=== PATIENT | male | born 1960 | race Caucasian/White ===

== ENCOUNTER 2016-06-20 07:57 | Outpatient (CLI) | payer OTHER | END 2016-06-20 07:58 | disposition home or self-care (01) | DX: I10 Essential (primary) hypertension (principal); E78.5 Hyperlipidemia, unspecified; Z12.5 Encounter for screening for malignant neoplasm of prostate ==

== ENCOUNTER 2016-09-21 08:13 | Outpatient (CLI) | payer OTHER | END 2016-09-21 08:14 | disposition home or self-care (01) | DX: E78.5 Hyperlipidemia, unspecified (principal) ==

== ENCOUNTER 2017-07-26 07:46 | Outpatient (CLI) | payer OTHER ==
[2017-07-26 08:20] LABS: ALBUMIN 4.4 g/dL (3.2-5.5); ALBUMIN/GLOBULIN RATIO 1.5 (1.0-2.2); ALKALINE PHOSPHATASE 72 IU/L (42-121); ALT ALANINE AMINOTRANSFERASE 40 IU/L (10-60); AST ASPARTATE AMINOTRANSFERASE 31 IU/L (10-42); BUN - BLOOD UREA NITROGEN 16 mg/dL (6-20); CARBON DIOXIDE - CO2 23 mmol/L (21-32); CHLORIDE 105 mmol/L (101-111); CHOL/HDL RATIO 3.9 (<5.0); CHOLESTEROL 151 mg/dL; CREATININE 1.2 mg/dL (0.6-1.2); GFR - MDRD 63 (>89); GLUCOSE 101 mg/dL (70-100); HDL CHOLESTEROL 39 mg/dL; LDL CHOLESTEROL,CALCULATED 89 mg/dL; LDL/HDL RATIO 2.3 (<3.6); SODIUM 135 mmol/L (135-145); TOTAL PROTEIN 7.3 g/dL (6.7-8.2); VLDL CHOLESTEROL 23 mg/dL
== END 2017-07-26 07:47 | disposition home or self-care (01) ==
LOC: LAB 07:46
PROVIDERS: ATTEND Family Medicine
DX: N52.9 Male erectile dysfunction, unspecified (principal); E78.5 Hyperlipidemia, unspecified; I10 Essential (primary) hypertension
CPT/HCPCS: 36415; 80053; 80061; 83721

== ENCOUNTER 2018-04-18 08:18 | Outpatient (CLI) | payer OTHER | END 2018-04-18 08:19 | disposition home or self-care (01) | LOC: RT 08:18 | PROVIDERS: ATTEND Internal Medicine Gastroenterology | DX: I10 Essential (primary) hypertension (principal); E78.5 Hyperlipidemia, unspecified | CPT/HCPCS: 93005 ==

== ENCOUNTER 2018-04-24 10:50 | Day surgery (SDC) | payer OTHER ==
[2018-04-24] MEDS ORDERED: LACTATED RINGERS 1,000 ML IV ONE (11:17)
[2018-04-24] MEDS ORDERED: fentaNYL 250 MCG/5 ML VIAL IVP ONE (12:27)
[2018-04-24] MEDS ORDERED: MIDAZOLAM 2 MG/2 ML VIAL IVP ONE (12:27)
[2018-04-24 13:46] VITALS: BP 124/87
== END 2018-04-24 10:51 | disposition home or self-care (01) ==
LOC: SDS 10:50
PROVIDERS: ATTEND Internal Medicine Gastroenterology
PROC: 0DBL8ZZ Excision of Transverse Colon, Via Natural or Artificial Opening Endoscopic (ICD-10-PCS; 2018-04-24)
PROC: 0DBM8ZZ Excision of Descending Colon, Via Natural or Artificial Opening Endoscopic (ICD-10-PCS; 2018-04-24)
PROC: 0DBK8ZZ Excision of Ascending Colon, Via Natural or Artificial Opening Endoscopic (ICD-10-PCS; principal; 2018-04-24 12:00)
DX: Z12.11 Encounter for screening for malignant neoplasm of colon (principal); D12.2 Benign neoplasm of ascending colon; D12.4 Benign neoplasm of descending colon; D12.3 Benign neoplasm of transverse colon; K57.30 Diverticulosis of large intestine without perforation or abscess without bleeding; I10 Essential (primary) hypertension; E78.5 Hyperlipidemia, unspecified; E66.9 Obesity, unspecified; Z68.32 Body mass index [BMI] 32.0-32.9, adult
CPT/HCPCS: 45380; J3010; J7120

== ENCOUNTER 2018-09-26 08:13 | Outpatient (CLI) | payer BC ==
[2018-09-26 08:50] LABS: BASOPHILS # (AUTO) 0.1 10^3/uL (0.0-0.1); BASOPHILS % (AUTO) 0.9 %; EOSINOPHILS # (AUTO) 0.2 10^3/uL (0.0-0.7); HGB - HEMOGLOBIN 14.1 g/dL (14.0-18.0); LYMPHOCYTES % (AUTO) 32.5 %; MEAN CORPUSCULAR HEMOGLOBIN 30.4 pg (27.0-31.0); MEAN CORPUSCULAR HGB CONC 33.9 g/dL (32.0-36.0); MEAN CORPUSCULAR VOLUME 89.6 fL (80.0-94.0); MEAN PLATELET VOLUME 7.4 fL (7.4-11.4); MONOCYTES # (AUTO) 0.5 10^3/uL (0.0-1.0); NEUTROPHILS # (AUTO) 3.3 10^3/uL (1.5-6.6); NEUTROPHILS % (AUTO) 53.6 %; PLT - PLATELET COUNT 207 10^3/uL (130-450); RED BLOOD COUNT 4.65 10^6/uL (4.70-6.10); RED CELL DISTRIBUTION WIDTH 13.2 % (12.0-15.0); WHITE BLOOD COUNT 6.1 x10^3/uL (4.8-10.8)
[2018-09-26 09:18] LABS: ALBUMIN 4.1 g/dL (3.2-5.5); ALBUMIN/GLOBULIN RATIO 1.5 (1.0-2.2); ALKALINE PHOSPHATASE 71 IU/L (42-121); ALT ALANINE AMINOTRANSFERASE 35 IU/L (10-60); AST ASPARTATE AMINOTRANSFERASE 24 IU/L (10-42); BILIRUBIN,TOTAL 1.4 mg/dL (0.2-1.0); BUN - BLOOD UREA NITROGEN 13 mg/dL (6-20); CHOL/HDL RATIO 3.5 (<5.0); CHOLESTEROL 140 mg/dL; CREATININE 1.3 mg/dL (0.6-1.2); GFR - MDRD 57 (>89); HDL CHOLESTEROL 40 mg/dL; LDL CHOLESTEROL,CALCULATED 77 mg/dL; LDL/HDL RATIO 1.9 (<3.6); TOTAL PROTEIN 6.8 g/dL (6.7-8.2); VLDL CHOLESTEROL 23 mg/dL
[2018-09-26 09:26] LABS: CARBON DIOXIDE - CO2 26 mmol/L (21-32); CHLORIDE 104 mmol/L (101-111); GLUCOSE 93 mg/dL (70-100); SODIUM 139 mmol/L (135-145)
== END 2018-09-26 08:14 | disposition home or self-care (01) ==
LOC: LAB 08:13
PROVIDERS: ATTEND Physician Assistant
DX: I10 Essential (primary) hypertension (principal); E78.5 Hyperlipidemia, unspecified; Z00.00 Encounter for general adult medical examination without abnormal findings
CPT/HCPCS: 36415; 80053; 80061; 83721; 84153; 84443; 85025

== ENCOUNTER 2018-10-24 07:31 | Outpatient (CLI) | payer BC ==
[2018-10-24 09:20] LABS: PSA FREE 0.66 ng/mL (0.16-2.81)
[2018-10-24 09:21] LABS: PSA TOTAL 2.66 ng/mL (0.000-2.000)
== END 2018-10-24 07:32 | disposition home or self-care (01) ==
LOC: LAB 07:31
PROVIDERS: ATTEND Physician Assistant
DX: R97.20 Elevated prostate specific antigen [PSA] (principal)
CPT/HCPCS: 36415; 84153; 84154

== ENCOUNTER 2019-10-30 08:42 | Outpatient (CLI) | payer BC ==
[2019-10-30 09:05] LABS: BASOPHILS % (AUTO) 0.6 %; EOSINOPHILS # (AUTO) 0.3 10^3/uL (0.0-0.7); EOSINOPHILS % (AUTO) 4.5 %; HGB - HEMOGLOBIN 14.5 g/dL (14.0-18.0); LYMPHOCYTES % (AUTO) 30.6 %; MEAN CORPUSCULAR HEMOGLOBIN 31.4 pg (27.0-31.0); MEAN CORPUSCULAR HGB CONC 34.4 g/dL (32.0-36.0); MEAN CORPUSCULAR VOLUME 91.3 fL (80.0-94.0); MEAN PLATELET VOLUME 9.3 fL (7.4-11.4); MONOCYTES # (AUTO) 0.6 10^3/uL (0.0-1.0); NEUTROPHILS # (AUTO) 3.6 10^3/uL (1.5-6.6); PLT - PLATELET COUNT 213 10^3/uL (130-450); RED BLOOD COUNT 4.62 10^6/uL (4.70-6.10); RED CELL DISTRIBUTION WIDTH 12.6 % (12.0-15.0); WHITE BLOOD COUNT 6.5 x10^3/uL (4.8-10.8)
[2019-10-30 09:23] LABS: ALBUMIN 4.4 g/dL (3.2-5.5); ALBUMIN/GLOBULIN RATIO 1.5 (1.0-2.2); ALKALINE PHOSPHATASE 83 IU/L (42-121); ALT ALANINE AMINOTRANSFERASE 30 IU/L (10-60); AST ASPARTATE AMINOTRANSFERASE 21 IU/L (10-42); BILIRUBIN,TOTAL 1.7 mg/dL (0.2-1.0); BUN - BLOOD UREA NITROGEN 18 mg/dL (6-20); CALCIUM 9.3 mg/dL (8.5-10.3); CARBON DIOXIDE - CO2 27 mmol/L (21-32); CHLORIDE 103 mmol/L (101-111); CHOL/HDL RATIO 3.8 (<5.0); CHOLESTEROL 149 mg/dL; CREATININE 1.3 mg/dL (0.6-1.2); GLUCOSE 96 mg/dL (70-100); HDL CHOLESTEROL 39 mg/dL; LDL CHOLESTEROL,CALCULATED 85 mg/dL; LDL/HDL RATIO 2.2 (<3.6); SODIUM 139 mmol/L (135-145); TOTAL PROTEIN 7.3 g/dL (6.7-8.2); VLDL CHOLESTEROL 25 mg/dL
== END 2019-10-30 08:43 | disposition home or self-care (01) ==
LOC: LAB 08:42
PROVIDERS: ATTEND Physician Assistant
DX: I10 Essential (primary) hypertension (principal); E78.5 Hyperlipidemia, unspecified
CPT/HCPCS: 36415; 80053; 80061; 83721; 85025

== ENCOUNTER 2020-01-12 14:58 | Outpatient (CLI) | payer BC ==
--- NOTE | 2020-01-12 16:23 | SLEEP CARE CONSULTATION ---
Information from patient questionnaire entered by Marie Barrios. I have reviewed and concur with the information entered by Marie Barrios. This document represents the service I personally performed and the decisions made by me, Arminda Cooper MD, [facility]. History of Present Illness Service Date and Time: 01/12/2020 1459 Reason for Visit: New patient Chief Complaint: reports: Unrefreshed sleep, Snoring, Excessive daytime sleepiness, Observed pauses in breathing, Fatigue, Frequent awakenings at night Date of Onset: 5+ years Usual bedtime: 9:30-10 pm Time it takes to fall asleep: seconds Snores at night: Yes (my says I do) Observed to quit breathing while asleep: Yes Sleeps alone due to snoring: No (wears earplugs) Number of times waking at night: 2-3 Reasons for waking at night: reports: Bathroom Toss, Turn, or Twitch while sleeping: No Recalls having dreams: Yes Usually gets out of bed at: 5:30 am Feels refreshed in the morning: No Morning headache: No Sleepy or fatigued during the day: Yes Ever fallen asleep while driving: No Takes day naps: Yes () Dreams during day naps: No Prior sleep studies: No Additional HPI information: I had the pleasure of seeing Mr. Cunningham along with his today regarding the possibility of him having a sleep disorder. As you know, he is a 59-year-old gentleman who complains of loud snore, observed apneas, frequent awakenings, unrefreshed sleep, persistent fatigue, and excessive daytime sleepiness. During the day he complains of feeling sleepy and fatigued. His score on [place] Sleepiness Scale is 9 out of 24. He has never fallen asleep while driving nor has had any accident due to sleepiness. He usually takes naps during the day. - Parasomnia Symptoms Ever been unable to move upon waking from sleep: No Ever felt weak in the knees when startled or emotional: No Bothered by creepy, crawly, restless sensations in legs: No Problems with memory or concentration: No Subjective Initial [place] Sleepiness Scale score: 9 (in 2019) Past Medical History Past Medical History: reports: Hypertension (pre), Impotence, Other (glaucoma) Social History The patient's occupation is a [employer]. Patient is and lives in [place]. Have you smoked in the past 12 months: No Alcohol use: No Caffeine use: Yes Family History Family history of sleep disordered breathing: Yes (mom, sisters) Allergies and Home Medications Drug allergies reviewed: Yes (NKDA) Home medication list reviewed: Yes (losartan, felodipine, atorvastatin, and eye drops) Review of Systems Weight gain over past 5 years: 30 Cardiovascular: reports: high blood pressure, leg or foot swelling Respiratory: denies: shortness of breath, wheeze, sputum production, chronic cough, other Gastrointestinal: denies: heartburn, difficulty swallowing, nausea, vomitting, diarrhea, abdominal pain, other Urinary: reports: frequency, impotence Neurological: reports: headaches (occasional migraine) Ear/Nose/Throat: reports: dry mouth/throat, wisdom teeth removed Endocrine: reports: sluggishness, increased urination Musculoskeletal: reports: muscle pain or cramping Immunologic: denies: sneezing, rash, itching, allergies to food or environment, other Physical Exam Vital signs obtained and entered by: To minimize the risk of COVID-19 exposure, detailed exam was not performed. Height: 5 ft 11 in Weight: 225 lb Body Mass Index: 31.4 BMI Classification: Obese Impression and Plan IMPRESSION: 1. Obstructive Sleep Apnea-Hypopnea Syndrome, as suggested by history of loud and irregular snoring, observed cessation of breath while asleep, unrefreshed sleep, and daytime hypersomnolence. Narrow oropharynx and obesity are common predisposing factors for obstructive sleep apnea-hypopnea syndrome. Untreated obstructive sleep apnea can also cause hypertension. Pathophysiology of sleep- disordered breathing was discussed. I recommend proceeding to polysomnography to confirm the diagnosis and to assess severity. If he has significant sleep disordered breathing, a manual CPAP titration study will also be performed to find the optimal treatment pressure. I informed the patient of what the sleep studies involve and after some discussion, he agreed to proceed. Plan: 1. Schedule polysomnography + manual CPAP titration study 2. Avoid long distance driving or when feeling sleepy. 3. Avoid alcohol, sedative and muscle relaxant around bedtime. 4. Attempt to lose weight. 5. Return in 1 to 2 weeks after the study to discuss results and initiate therapy. Time Spent with Patient (minutes): 15
== END 2020-01-12 14:59 | disposition home or self-care (01) ==
LOC: SC 14:58
PROVIDERS: ATTEND Internal Medicine Pulmonary Disease
DX: R06.83 Snoring (principal); G47.10 Hypersomnia, unspecified; G47.8 Other sleep disorders; R06.81 Apnea, not elsewhere classified; E66.9 Obesity, unspecified; Z68.31 Body mass index [BMI] 31.0-31.9, adult; I10 Essential (primary) hypertension
CPT/HCPCS: 99203; 99212

== ENCOUNTER 2020-02-23 11:00 | Outpatient (CLI) | payer BC | END 2020-02-23 11:01 | disposition home or self-care (01) | LOC: SC 11:00 | PROVIDERS: ATTEND Internal Medicine Pulmonary Disease | DX: G47.33 Obstructive sleep apnea (adult) (pediatric) (principal); R09.02 Hypoxemia | CPT/HCPCS: 95806 ==

== ENCOUNTER 2020-03-17 16:22 | Outpatient (CLI) | payer BC ==
--- NOTE | 2020-03-17 16:57 | SLEEP CARE CONSULTATION ---
Information from patient questionnaire entered by Jasbir Schaeffer. I have reviewed and concur with the information entered by Jasbir Schaeffer. This document represents the service I personally performed and the decisions made by , Carolyne Min ARNP. History of Present Illness Service Date and Time: 03/17/2020 162 Initial [place] Sleepiness Scale score: 9 (in 2020) Current [place] Sleepiness Scale score: 7 Additional HPI information: MALAIKA MARCUM returns with spouse for follow up and results of the recently performed home sleep study. I explained the pathophysiology behind obstructive sleep apnea. We then spent quite a bit of time discussing different treatment options. For mild obstructive sleep apnea, surgery and oral appliance are alternatives to nasal CPAP therapy but in moderate or severe cases, nasal CPAP is the most effective and reliable treatment. I reviewed the impact of weight changes on sleep apnea and strongly recommended losing weight. After some discussion, the patient opted to go with the nasal CPAP therapy. Patient would like to see if he could have an in lab titration study. A manual titration study will be ordered to find optimal pressure with office adjustments. Sleep Study - Results Type of Sleep Study: Home sleep study Prior sleep studies: No Polysomnography/Home Sleep Study results: Physician Impression: The quality of the study is good. The length of the study is adequate (> 240 minutes). Please also see the tabulated and graphic data. 1. Obstructive Sleep Apnea-Hypopnea (ICD-10 G47.33), severe, with an AHI of 34.3 /hr and favio SaO2 of 73%. During the study, the patient had 162 apneas (160 obstructive, 1 central, 1 mixed) and 55 hypopneas. The longest episode lasted 44.0 seconds. The respiratory events occurred more frequently during supine sleep (supine AHI was 72.1 and non-supine, 28.03). 2. Hypoxemia (ICD-10 R09.02), moderate, with the lowest oxygen saturation of 73 % and 9.2 minutes with SaO2 under 90%. Baseline oxygen saturation was normal (Average oxygen saturation was 93%). Allergies and Home Medications Drug allergies reviewed: Yes (NKDA) Home medication list reviewed: Yes (no changes) Review of Systems Review of systems same as previous: Yes (no changes) Physical Exam Heart Rate: 82 O2 Saturation: 98 Height: 5 ft 11 in Weight: 225 lb Body Mass Index: 31.4 BMI Classification: Obese Impression and Plan 1. Obstructive Sleep Apnea-Hypopnea Syndrome, severe, with lowest oxygen saturation of 73%. Obviously this is the cause of the patients symptoms of unrefreshed sleep, and excessive daytime sleepiness. Positive pressure therapy could benefit hypertension. As mentioned above, I will order a manual titration study to find optimal treatment pressure. If this is not authorized with will do an APAP therapy trial with pressure adjustments. Compliance guidelines also reviewed. A copy of compliance guidelines will be given for reference at check out. Because the apnea is more severe supine, I instructed to avoid sleeping supine using pillow positioning until able to start CPAP use. * Titration study. * Attempt to lose weight. * Avoid alcohol consumption near bedtime. * Avoid supine sleep until using CPAP. * The patient is again cautioned about driving until sleepiness completely resolves. * Return after study to initiate CPAP therapy. Counseling Topics: Weight loss health impact Visit Type: In Office Time Spent with Patient (minutes): 35 Provider Statement: I spent 100% of the Face to Face Visit with the patient with greater than 50% spent counseling the patient and coordination of care.
== END 2020-03-17 16:23 | disposition home or self-care (01) ==
LOC: SC 16:22
PROVIDERS: ATTEND Nurse Practitioner Family
DX: G47.33 Obstructive sleep apnea (adult) (pediatric) (principal); E66.9 Obesity, unspecified; Z68.31 Body mass index [BMI] 31.0-31.9, adult
CPT/HCPCS: 99212; 99213

== ENCOUNTER 2020-06-23 16:31 | Outpatient (CLI) | payer BC ==
--- NOTE | 2020-06-23 16:58 | SLEEP CARE CONSULTATION ---
Information from patient questionnaire entered by Jasbir Schaeffer. I have reviewed and concur with the information entered by Jasbir Schaeffer. This document represents the service I personally performed and the decisions made by , Carolyne Min ARNP. History of Present Illness Service Date and Time: 06/23/2020 1631 Previous diagnosis: Severe, Obstructive Sleep Apnea-Hypopnea Syndrome AHI: 34.3 Reason for follow up: first compliance (1st compliance - 05/11/20) Equipment type: CPAP Equipment obtained from: [employer] (getting supplies as needed) Mask style: Nasal Backup mask available: No (will keep old mask setup when replaced) Last cushion change: 1 month Prior sleep studies: No Year and Where: 2019 [facility] Type of Sleep Study: Home sleep study HPI additional information: MALAIKA MARCUM was diagnosed to have severe, AHI 34.3, obstructive sleep apnea-hypopnea syndrome and returned today with spouse for CPAP therapy first compliance follow-up. Sleep Study - Results Type of Sleep Study: Home sleep study Prior sleep studies: No CPAP Compliance Data - Data Reviewed with Patient Average duration of nightly device use: 7 h 17 min Compliance rate %: 90 Current pressure setting (cmH2O): 4-15 (7.3 median, 9.6 average, 10.8 maximum) Average residual AHI: 5.6 Central apnea: 2.3 Obstructive apnea: 2.5 Subjective Patient concerns: denies: aerophagia, mask discomfort, air blowing in eyes, mask leak noise, nasal congestion, dry mouth, nose, throat, epistaxis, other Observed to snore while using device: No Current pressure setting perceived as: comfortable On therapy, patient: reports: sleeping better. denies: awakening more refreshed, being more awake and alert during the day, more rested overall, drowsiness while driving Initial [place] Sleepiness Scale score: 9 (in 2020) Current [place] Sleepiness Scale score: 5 Allergies and Home Medications Drug allergies reviewed: Yes (NKDA) Home medication list reviewed: Yes (no changes) Review of Systems Review of systems same as previous: No (have had 2 doses of Phizer Covid vaccine) Physical Exam Heart Rate: 76 O2 Saturation: 98 Height: 5 ft 11 in Weight: 230 lb Body Mass Index: 32.1 BMI Classification: Obese Impression and Plan 1. Obstructive Sleep Apnea-Hypopnea Syndrome, severe, with good treatment compliance and fair apnea control with elevated residual AHI. On CPAP therapy, the patient has better sleep quality but is still feeling fatigue during the day. His states that he has been staying up longer in the evenings. The patients pressure will be changed to autoCPAP 8-12 cmH20 for elevation of residual AHI. Patient advised to contact me if pressure change is uncomfortable so that it can be adjusted. Goals for apnea control discussed. Patient's apnea severity and rationale for treatment to reduce apnea, improve sleep quality and reduce cardiovascular and cerebrovascular events was reviewed. I also reviewed the benefit of consistent device use of CPAP for hypertension. * Change auto CPAP pressure to 8-12 cmH2O * Notify me if snoring with mask or feeling that the pressure is too much or too little * Attempt to lose weight * Call this office if any problems using CPAP * Return for follow up in 1-2 months, or sooner if concerns arise Counseling Topics: Spare mask, Weight loss health impact Visit Type: In Office Time Spent with Patient (minutes): 22 Provider Statement: I spent 100% of the Face to Face Visit with the patient with greater than 50% spent counseling the patient and coordination of care.
== END 2020-06-23 16:32 | disposition home or self-care (01) ==
LOC: SC 16:31
PROVIDERS: ATTEND Nurse Practitioner Family
DX: G47.33 Obstructive sleep apnea (adult) (pediatric) (principal); E66.9 Obesity, unspecified; Z68.32 Body mass index [BMI] 32.0-32.9, adult
CPT/HCPCS: 99212; 99213

== ENCOUNTER 2020-07-19 07:39 | Outpatient (CLI) | payer BC ==
[2020-07-19 08:09] LABS: BASOPHILS # (AUTO) 0.1 10^3/uL (0.0-0.1); BASOPHILS % (AUTO) 0.9 %; EOSINOPHILS # (AUTO) 0.2 10^3/uL (0.0-0.7); EOSINOPHILS % (AUTO) 4.1 %; HCT - HEMATOCRIT 42.5 % (42.0-52.0); LYMPHOCYTES # (AUTO) 1.9 10^3/uL (1.5-3.5); LYMPHOCYTES % (AUTO) 33.6 %; MEAN CORPUSCULAR HEMOGLOBIN 30.3 pg (27.0-31.0); MEAN CORPUSCULAR HGB CONC 32.9 g/dL (32.0-36.0); MEAN PLATELET VOLUME 9.7 fL (7.4-11.4); MONOCYTES # (AUTO) 0.5 10^3/uL (0.0-1.0); MONOCYTES % (AUTO) 8.5 %; NEUTROPHILS % (AUTO) 52.5 %; PLT - PLATELET COUNT 217 10^3/uL (130-450); RED BLOOD COUNT 4.62 10^6/uL (4.70-6.10); RED CELL DISTRIBUTION WIDTH 12.7 % (12.0-15.0); WHITE BLOOD COUNT 5.7 x10^3/uL (4.8-10.8)
[2020-07-19 08:36] LABS: THYROID STIMULATING HORMONE 2.21 uIU/mL (0.34-5.60)
[2020-07-19 10:59] LABS: ALBUMIN 4.4 g/dL (3.2-5.5); ALBUMIN/GLOBULIN RATIO 1.7 (1.0-2.2); ALKALINE PHOSPHATASE 84 IU/L (42-121); ALT ALANINE AMINOTRANSFERASE 24 IU/L (10-60); AST ASPARTATE AMINOTRANSFERASE 21 IU/L (10-42); BILIRUBIN,TOTAL 1.9 mg/dL (0.2-1.0); BUN - BLOOD UREA NITROGEN 19 mg/dL (6-20); CALCIUM 9.1 mg/dL (8.5-10.3); CARBON DIOXIDE - CO2 23 mmol/L (21-32); CHLORIDE 104 mmol/L (101-111); CHOL/HDL RATIO 3.7 (<5.0); CHOLESTEROL 156 mg/dL; CREATININE 1.4 mg/dL (0.6-1.2); GFR - MDRD 52 (>89); GLUCOSE 88 mg/dL (70-100); HDL CHOLESTEROL 42 mg/dL; LDL CHOLESTEROL,CALCULATED 88 mg/dL; LDL/HDL RATIO 2.1 (<3.6); POTASSIUM 4.2 mmol/L (3.5-5.0); SODIUM 137 mmol/L (135-145); TRIGLYCERIDES 132 mg/dL; VLDL CHOLESTEROL 26 mg/dL
== END 2020-07-19 07:40 | disposition home or self-care (01) ==
LOC: LAB 07:39
PROVIDERS: ATTEND Physician Assistant Medical
DX: Z00.00 Encounter for general adult medical examination without abnormal findings (principal); E78.5 Hyperlipidemia, unspecified; I10 Essential (primary) hypertension; R97.20 Elevated prostate specific antigen [PSA]
CPT/HCPCS: 36415; 80053; 80061; 83721; 84153; 84443; 85025

== ENCOUNTER 2020-08-03 16:03 | Outpatient (CLI) | payer BC ==
--- NOTE | 2020-08-03 16:30 | SLEEP CARE CONSULTATION ---
Information from patient questionnaire entered by Jasbir Schaeffer. I have reviewed and concur with the information entered by Jasbir Schaeffer. This document represents the service I personally performed and the decisions made by me, Carolyne Min ARNP. History of Present Illness Service Date and Time: 08/03/2020 1603 Previous diagnosis: Severe, Obstructive Sleep Apnea-Hypopnea Syndrome AHI: 34.3 Reason for follow up: other (6-week followup - pressure change) Equipment obtained from: [employer] (getting supplies as needed) Mask style: Nasal (under nose) Backup mask available: No (will keep mask when replaced) Last cushion change: 1 week ago Prior sleep studies: No Year and Where: 2019 [facility] Type of Sleep Study: Home sleep study HPI additional information: MALAIKA MARCUM was diagnosed to have severe, AHI 34.3, obstructive sleep apnea-hypopnea syndrome and returned today for CPAP therapy 6 week pressure change follow-up. CPAP Compliance Data - Data Reviewed with Patient Average duration of nightly device use: 7 h 35 min Compliance rate %: 97 Current pressure setting (cmH2O): 8-12 Average residual AHI: 4.2 Central apnea: 2.6 Obstructive apnea: 1.2 Subjective Patient concerns: denies: aerophagia, mask discomfort, air blowing in eyes, mask leak noise, condensation in mask/hose, nasal congestion, dry mouth, nose, throat, epistaxis, other Observed to snore while using device: No Current pressure setting perceived as: comfortable On therapy, patient: reports: sleeping better, awakening more refreshed, being more awake and alert during the day, more rested overall. denies: drowsiness while driving Initial [place] Sleepiness Scale score: 9 (in 2019) Current [place] Sleepiness Scale score: 5 Allergies and Home Medications Home medication list reviewed: Yes (no changes) Review of Systems Review of systems same as previous: No (PHizer Vaccine for Covid-19) Physical Exam Heart Rate: 73 O2 Saturation: 98 Height: 5 ft 11 in Weight: 233 lb Body Mass Index: 32.5 BMI Classification: Obese Impression and Plan 1. Obstructive Sleep Apnea-Hypopnea Syndrome, severe, with good treatment compliance and good apnea control. On CPAP therapy, the patient has better sleep quality and is more rested overall. He has no issues or concerns and is feeling slow improvement of his daytime energy. He feels the current pressure is comfortable. I discussed with him that we can increase pressure if he starts feeling like he needs more pressure or his residual AHI increases above 5.0. He voiced understanding and will let the office know if needed. I will have him follow up in about 3 months. Patient's apnea severity and rationale for treatment to reduce apnea, improve sleep quality and reduce cardiovascular and cerebrovascular events was reviewed. I also reviewed the benefit of consistent device use of CPAP for hypertension. * Continue autoCPAP pressure at 8-12 cmH2O * Notify me if snoring with mask or feeling that the pressure is too much or too little * Attempt to lose weight * Call this office if any problems using CPAP * Return for follow up in 3 months, or sooner if concerns arise Counseling Topics: Spare mask, Weight loss health impact Visit Type: In Office Time Spent with Patient (minutes): 14 Provider Statement: I spent 100% of the Face to Face Visit with the patient with greater than 50% spent counseling the patient and coordination of care.
== END 2020-08-03 16:04 | disposition home or self-care (01) ==
LOC: SC 16:03
PROVIDERS: ATTEND Nurse Practitioner Family
DX: G47.33 Obstructive sleep apnea (adult) (pediatric) (principal); E66.9 Obesity, unspecified; Z68.32 Body mass index [BMI] 32.0-32.9, adult
CPT/HCPCS: 99212

== ENCOUNTER 2020-10-26 16:17 | Outpatient (CLI) | payer BC ==
--- NOTE | 2020-10-26 16:40 | SLEEP CARE CONSULTATION ---
Information from patient questionnaire entered by Jasbir Schaeffer. I have reviewed and concur with the information entered by Jasbir Schaeffer. This document represents the service I personally performed and the decisions made by me, Carolyne Min ARNP. History of Present Illness Service Date and Time: 10/26/2020 1617 Previous diagnosis: Severe, Obstructive Sleep Apnea-Hypopnea Syndrome AHI: 34.3 Equipment type: CPAP Equipment obtained from: [employer] (getting supplies as needed) Mask style: Nasal pillows Backup mask available: Yes (old mask) Last cushion change: 2 weeks ago Prior sleep studies: No Year and Where: 2019 [facility] Type of Sleep Study: Home sleep study HPI additional information: MALAIKA MARCUM was diagnosed to have severe, AHI 34.3, obstructive sleep apnea-hypopnea syndrome and returned today for CPAP therapy three month follow- up. CPAP Compliance Data - Data Reviewed with Patient Average duration of nightly device use: 7 h 28 min Compliance rate %: 98 Current pressure setting (cmH2O): 8-12 Average residual AHI: 3.7 Central apnea: 2.3 Obstructive apnea: 1.0 Subjective Missed days of use due to: reports: travel Patient concerns: reports: other ([place] increase not apparent, although I do sleep better). denies: aerophagia, mask discomfort, air blowing in eyes, mask leak noise, condensation in mask/hose, nasal congestion, dry mouth, nose, throat, epistaxis Observed to snore while using device: No Current pressure setting perceived as: comfortable On therapy, patient: reports: sleeping better, awakening more refreshed, being more awake and alert during the day, more rested overall. denies: drowsiness while driving Initial [place] Sleepiness Scale score: 9 (in 2020) Current [place] Sleepiness Scale score: 7 Allergies and Home Medications Home medication list reviewed: Yes (no new meds) Review of Systems Review of systems same as previous: Yes (no changes) Physical Exam Heart Rate: 80 O2 Saturation: 97 Height: 5 ft 11 in Weight: 230 lb Body Mass Index: 32.1 BMI Classification: Obese Impression and Plan 1. Obstructive Sleep Apnea-Hypopnea Syndrome, severe, with good treatment compliance and good apnea control. On CPAP therapy, the patient has better sleep quality and is more rested overall. He has significant improvement of his apneas and is satisfied with current treatment. He has been tracking his numbers and asked why some nights he seems to have higher residual AHI than others. I discussed that this is probably positional where he can have more when he is laying on his back rather than his side. He voiced understanding. He states he does not feel like he is getting more energy during the day but he definitely is sleeping better every night. I do not think we need to change any pressure setting today since we have good apnea control. Patient voiced understanding and agreement with plan of care. Patient's apnea severity and rationale for treatment to reduce apnea, improve sleep quality and reduce cardiovascular and cerebrovascular events was reviewed. I also reviewed the benefit of consistent device use of CPAP for hypertension. * Continue auto CPAP pressure at 8-12 cmH2O * Notify me if snoring with mask or feeling that the pressure is too much or too little * Try to lose weight * Call this office if any problems using CPAP * Return for follow up in 6 months, or sooner if concerns arise Counseling Topics: Spare mask, Weight loss health impact Visit Type: In Office Time Spent with Patient (minutes): 12 Provider Statement: I spent 100% of the Face to Face Visit with the patient with greater than 50% spent counseling the patient and coordination of care.
== END 2020-10-26 16:18 | disposition home or self-care (01) ==
LOC: SC 16:17
PROVIDERS: ATTEND Nurse Practitioner Family
DX: G47.33 Obstructive sleep apnea (adult) (pediatric) (principal); E66.9 Obesity, unspecified; Z68.32 Body mass index [BMI] 32.0-32.9, adult
CPT/HCPCS: 99212

== ENCOUNTER 2021-03-23 07:36 | Outpatient (CLI) | payer BC ==
[2021-03-23 07:55] LABS: CALCIUM 9.4 mg/dL (8.5-10.3); CREATININE 1.2 mg/dL (0.6-1.2)
== END 2021-03-23 07:37 | disposition home or self-care (01) ==
LOC: LAB 07:36
PROVIDERS: ATTEND Physician Assistant Medical
DX: N18.9 Chronic kidney disease, unspecified (principal)
CPT/HCPCS: 36415; 80048

== ENCOUNTER 2021-07-20 07:45 | Outpatient (CLI) | payer BC ==
[2021-07-20 07:57] LABS: BASOPHILS # (AUTO) 0.1 10^3/uL (0.0-0.1); EOSINOPHILS # (AUTO) 0.2 10^3/uL (0.0-0.7); EOSINOPHILS % (AUTO) 3.8 %; HGB - HEMOGLOBIN 14.5 g/dL (14.0-18.0); LYMPHOCYTES # (AUTO) 1.7 10^3/uL (1.5-3.5); LYMPHOCYTES % (AUTO) 28.6 %; MEAN CORPUSCULAR HEMOGLOBIN 31.3 pg (27.0-31.0); MEAN CORPUSCULAR HGB CONC 34.5 g/dL (32.0-36.0); MEAN CORPUSCULAR VOLUME 90.7 fL (80.0-94.0); MEAN PLATELET VOLUME 9.5 fL (7.4-11.4); MONOCYTES # (AUTO) 0.5 10^3/uL (0.0-1.0); NEUTROPHILS # (AUTO) 3.3 10^3/uL (1.5-6.6); NEUTROPHILS % (AUTO) 57.3 %; PLT - PLATELET COUNT 220 10^3/uL (130-450); RED BLOOD COUNT 4.63 10^6/uL (4.70-6.10); RED CELL DISTRIBUTION WIDTH 12.6 % (12.0-15.0); WHITE BLOOD COUNT 5.8 x10^3/uL (4.8-10.8)
[2021-07-20 08:23] LABS: ALBUMIN 4.4 g/dL (3.2-5.5); ALBUMIN/GLOBULIN RATIO 1.6 (1.0-2.2); ALKALINE PHOSPHATASE 76 IU/L (42-121); ALT ALANINE AMINOTRANSFERASE 23 IU/L (10-60); AST ASPARTATE AMINOTRANSFERASE 19 IU/L (10-42); BILIRUBIN,TOTAL 1.3 mg/dL (0.2-1.0); BUN - BLOOD UREA NITROGEN 18 mg/dL (6-20); CALCIUM 9.1 mg/dL (8.5-10.3); CARBON DIOXIDE - CO2 24 mmol/L (21-32); CHLORIDE 105 mmol/L (101-111); CHOL/HDL RATIO 3.3 (<5.0); CHOLESTEROL 143 mg/dL; CREATININE 1.3 mg/dL (0.6-1.2); GFR - MDRD 57 (>89); GLUCOSE 103 mg/dL (70-100); HDL CHOLESTEROL 44 mg/dL; LDL CHOLESTEROL,CALCULATED 80 mg/dL; LDL/HDL RATIO 1.8 (<3.6); POTASSIUM 4.1 mmol/L (3.5-5.0); SODIUM 136 mmol/L (135-145); TOTAL PROTEIN 7.1 g/dL (6.7-8.2); TRIGLYCERIDES 97 mg/dL; VLDL CHOLESTEROL 19 mg/dL
[2021-07-20 08:34] LABS: THYROID STIMULATING HORMONE 1.75 uIU/mL (0.34-5.60)
== END 2021-07-20 07:46 | disposition home or self-care (01) ==
LOC: LAB 07:45
PROVIDERS: ATTEND Physician Assistant Medical
DX: Z00.00 Encounter for general adult medical examination without abnormal findings (principal); E78.5 Hyperlipidemia, unspecified; R97.20 Elevated prostate specific antigen [PSA]
CPT/HCPCS: 36415; 80053; 80061; 83721; 84153; 84443; 85025

== ENCOUNTER 2021-07-21 16:18 | Outpatient (CLI) | payer BC ==
[2021-07-21 16:48] VITALS: BP 135/94
--- NOTE | 2021-07-21 16:48 | SLEEP CARE CONSULTATION ---
Information from patient questionnaire entered by Herberth White MA. I have reviewed and concur with the information entered by Herberth White MA. This document represents the service I personally performed and the decisions made by , Carolyne Min ARNP. History of Present Illness Service Date and Time: 07/21/2021 1618 Previous diagnosis: Severe, Obstructive Sleep Apnea-Hypopnea Syndrome AHI: 34.3 Reason for follow up: other (9 MONTH F/U, RESMED,) Equipment type: CPAP Equipment obtained from: [employer] (getting supplies as needed) Mask style: Nasal pillows Backup mask available: Yes (old mask) Last cushion change: 10 days ago Prior sleep studies: No Year and Where: 2019 [facility] Type of Sleep Study: Home sleep study HPI additional information: MALAIKA MARCUM was diagnosed to have severe, AHI 34.3, obstructive sleep apnea-hypopnea syndrome and returned today for CPAP therapy 9 month follow-up. Sleep Study - Results Type of Sleep Study: Home sleep study Prior sleep studies: No Year and Where: 2019 [facility] CPAP Compliance Data - Data Reviewed with Patient Average duration of nightly device use: 7 HOURS 9 MINUTES Compliance rate %: 100 Current pressure setting (cmH2O): 8-12 Average residual AHI: 2.0 Central apnea: 1.2 Obstructive apnea: .5 Average large leak: 2.3 Subjective Patient concerns: reports: aerophagia Observed to snore while using device: No Current pressure setting perceived as: comfortable On therapy, patient: reports: other (Not getting up during the night like before). denies: drowsiness while driving Initial [place] Sleepiness Scale score: 9 (in 2019) Current [place] Sleepiness Scale score: 7 Allergies and Home Medications Home medication list reviewed: Yes (no changes) Allergy and home medication list: Allergies No Known Drug Allergies Allergy (Verified 12/31/12 13:01) Review of Systems Review of systems same as previous: Yes (no changes) Physical Exam Vital signs obtained and entered by: ELISE MATIAS Blood Pressure: 135/94 (left) Cuff size: wrist Heart Rate: 80 O2 Saturation: 98 (cloth mask) Height: 5 ft 11 in Weight: 225 lb Weight change since last visit: 5 lb loss Body Mass Index: 31.4 BMI Classification: Obese Impression and Plan 1. Obstructive Sleep Apnea-Hypopnea Syndrome, severe, with excellent treatment compliance and good apnea control. On CPAP therapy, the patient has noted less night awakenings but no real difference in feelings of restfulness or sleeping better. He is satisfied with current CPAP therapy and has significant improvement of his sleep apnea. He has noted some bloating feeling in the morning. He states it resolves in the morning. He denies burping in the morning. To reduce symptoms of aerophagia, the CPAP pressure will be reduced to 8-9.6 cmH2O. Patient advised to contact me if this does not reduce symptoms or if pressure change uncomfortable. He voiced understanding. Patient's apnea severity and rationale for treatment to reduce apnea, improve sleep quality and reduce cardiovascular and cerebrovascular events was reviewed. I also reviewed the benefit of consistent device use of CPAP for hypertension. 2. Obesity, unspecified. Patient has lost weight. Currently patients BMI is 31.4. Obesity increases the risk of apnea, CPAP pressure requirements and overall health risks especially cardiovascular and diabetes. Thus patient is advised to continue to try to lose weight. He voiced understanding. * Change auto CPAP pressure to 8-9.6 cmH2O * Notify me if snoring with mask or feeling that the pressure is too much or too little * Continue to try to lose weight * Call this office if any problems using CPAP * Return for follow up in 1 year, or sooner if concerns arise Counseling Topics: Spare mask, Weight loss health impact Visit Type: In Office Time Spent with Patient (minutes): 17 Provider Statement: I spent 100% of the Face to Face Visit with the patient with greater than 50% spent counseling the patient and coordination of care.
== END 2021-07-21 16:19 | disposition home or self-care (01) ==
LOC: SC 16:18
PROVIDERS: ATTEND Nurse Practitioner Family
DX: G47.33 Obstructive sleep apnea (adult) (pediatric) (principal); E66.9 Obesity, unspecified; Z68.31 Body mass index [BMI] 31.0-31.9, adult
CPT/HCPCS: 99212

== ENCOUNTER 2022-08-01 16:27 | Outpatient (CLI) | payer BC ==
--- NOTE | 2022-08-01 16:40 | SLEEP CARE CONSULTATION ---
Information from patient questionnaire entered by Bernie Robert. I have reviewed and concur with the information entered by Bernie Robert. This document represents the service I personally performed and the decisions made by , Carolyne Min ARNP. History of Present Illness Service Date and Time: 08/01/2022 1627 Previous diagnosis: Severe, Obstructive Sleep Apnea-Hypopnea Syndrome AHI: 34.3 Reason for follow up: annual (LAST SEEN 07/2021) Equipment type: CPAP (RESMED Airsense 10 s/u 04/2020) Equipment obtained from: [employer] (getting supplies as needed) Mask style: Nasal pillows Backup mask available: Yes (old mask) Last cushion change: 3 weeks Prior sleep studies: No Year and Where: 2019 [facility] Type of Sleep Study: Home sleep study HPI additional information: MALAIKA MARCUM was diagnosed to have severe, AHI 34.3, obstructive sleep apnea-hypopnea syndrome and returned today for CPAP therapy annual follow-up. Sleep Study - Results Type of Sleep Study: Home sleep study Prior sleep studies: No Year and Where: 2019 [facility] CPAP Compliance Data - Data Reviewed with Patient Average duration of nightly device use: 6 HRS 56 MIN Compliance rate %: 98 (02/01/2022-07/30/22; 176/180 days used) Current pressure setting (cmH2O): 8-9.6 Average residual AHI: 1.2 Central apnea: 0.8 Obstructive apnea: 0.2 Average large leak: 0.0 Subjective Missed days of use due to: reports: travel, other (power outages) Patient concerns: denies: aerophagia, mask discomfort, air blowing in eyes, mask leak noise, condensation in mask/hose, nasal congestion, dry mouth, nose, throat, epistaxis Observed to snore while using device: No Current pressure setting perceived as: comfortable On therapy, patient: reports: sleeping better, awakening more refreshed, being more awake and alert during the day, more rested overall. denies: drowsiness while driving Initial [place] Sleepiness Scale score: 9 (in 2019) Current [place] Sleepiness Scale score: 7 (08/01/22) Allergies and Home Medications Known drug allergies: No Drug allergies reviewed: Yes Home medication list reviewed: Yes (no changes) Allergy and home medication list: Allergies No Known Drug Allergies Allergy (Verified 07/31/22 14:13) Review of Systems Review of systems same as previous: Yes (no changes) Physical Exam Vital signs obtained and entered by: BERNIE Goins MA Blood Pressure: 124/78 (LEFT ARM) Cuff size: regular Heart Rate: 74 O2 Saturation: 97 Height: 5 ft 11 in Weight: 210 lb 3.2 oz Weight change since last visit: 15 lb loss Body Mass Index: 29.2 BMI Classification: Overweight Impression and Plan 1. Obstructive Sleep Apnea-Hypopnea Syndrome, severe, with good treatment compliance and good apnea control. On CPAP therapy, the patient has better sleep quality and is more rested overall. Patient has significant improvement of their sleep apnea and is satisfied with current CPAP therapy. Patient denies problems with oral dryness, nasal congestion, epistaxis, skin irritation or aerophagia. Patient's apnea severity and rationale for treatment to reduce apnea, improve sleep quality and reduce cardiovascular and cerebrovascular events was reviewed. I also reviewed the benefit of consistent device use of CPAP for hypertension. 2. Overweight, unspecified. Currently patients BMI is 29.2. He is using weight watchers and has lost about 15 pounds in last year. Obesity increases the risk of apnea, CPAP pressure requirements and overall health risks especially cardiovascular and diabetes. Thus patient is advised to continue to try to lose weight. The patient's CPAP pressure range should accommodate some weight loss. Symptoms to report for additional pressure adjustment discussed. * Continue auto CPAP pressure at 8-9.6 cmH2O * Update supplies * Notify me if snoring with mask or feeling that the pressure is too much or too little * Attempt to lose weight * Call this office if any problems using CPAP * Return for follow up in 1 year, or sooner if concerns arise Counseling Topics: Spare mask, Weight loss health impact Visit Type: In Office Time Spent with Patient (minutes): 20 Provider Statement: I spent 100% of the Face to Face Visit with the patient with greater than 50% spent counseling the patient and coordination of care.
[2022-08-01 16:43] VITALS: BP 124/78
== END 2022-08-01 16:28 | disposition home or self-care (01) ==
LOC: SC 16:27
PROVIDERS: ATTEND Nurse Practitioner Family
DX: G47.33 Obstructive sleep apnea (adult) (pediatric) (principal); E66.3 Overweight; Z68.29 Body mass index [BMI] 29.0-29.9, adult
CPT/HCPCS: 99212; 99213

== ENCOUNTER 2023-03-19 07:27 | Outpatient (CLI) | payer BC ==
[2023-03-19 07:50] LABS: BASOPHILS # (AUTO) 0.1 10^3/uL (0.0-0.1); BASOPHILS % (AUTO) 0.9 %; EOSINOPHILS # (AUTO) 0.2 10^3/uL (0.0-0.7); EOSINOPHILS % (AUTO) 3.6 %; HCT - HEMATOCRIT 42.7 % (42.0-52.0); HGB - HEMOGLOBIN 14.2 g/dL (14.0-18.0); LYMPHOCYTES # (AUTO) 1.7 10^3/uL (1.5-3.5); LYMPHOCYTES % (AUTO) 30.5 %; MEAN CORPUSCULAR HEMOGLOBIN 30.9 pg (27.0-31.0); MEAN CORPUSCULAR HGB CONC 33.3 g/dL (32.0-36.0); MEAN PLATELET VOLUME 9.2 fL (7.4-11.4); MONOCYTES # (AUTO) 0.5 10^3/uL (0.0-1.0); MONOCYTES % (AUTO) 9.3 %; NEUTROPHILS # (AUTO) 3.1 10^3/uL (1.5-6.6); NEUTROPHILS % (AUTO) 55.3 %; PLT - PLATELET COUNT 220 10^3/uL (130-450); RED BLOOD COUNT 4.59 10^6/uL (4.70-6.10); RED CELL DISTRIBUTION WIDTH 12.7 % (12.0-15.0); WHITE BLOOD COUNT 5.6 x10^3/uL (4.8-10.8)
[2023-03-19 08:10] LABS: ALBUMIN 4.5 g/dL (3.2-5.5); ALBUMIN/GLOBULIN RATIO 1.7 (1.0-2.2); ALKALINE PHOSPHATASE 77 IU/L (42-121); ALT ALANINE AMINOTRANSFERASE 16 IU/L (10-60); AST ASPARTATE AMINOTRANSFERASE 15 IU/L (10-42); BILIRUBIN,TOTAL 2.2 mg/dL (0.2-1.0); BUN - BLOOD UREA NITROGEN 19 mg/dL (6-20); CALCIUM 9.5 mg/dL (8.5-10.3); CARBON DIOXIDE - CO2 28 mmol/L (21-32); CHLORIDE 107 mmol/L (101-111); CHOL/HDL RATIO 2.6 (<5.0); CHOLESTEROL 118 mg/dL; CREATININE 1.3 mg/dL (0.6-1.3); GFR - MDRD 56 (>89); GLUCOSE 88 mg/dL (74-104); HDL CHOLESTEROL 45 mg/dL; LDL CHOLESTEROL,CALCULATED 53 mg/dL; LDL/HDL RATIO 1.2 (<3.6); POTASSIUM 4.2 mmol/L (3.5-4.5); SODIUM 139 mmol/L (135-145); TOTAL PROTEIN 7.1 g/dL (6.4-8.9); TRIGLYCERIDES 99 mg/dL (48-352); VLDL CHOLESTEROL 20 mg/dL
== END 2023-03-19 07:28 | disposition home or self-care (01) ==
LOC: LAB 07:27
PROVIDERS: ATTEND Physician Assistant Medical
DX: I12.9 Hypertensive chronic kidney disease with stage 1 through stage 4 chronic kidney disease, or unspecified chronic kidney disease (principal); N18.9 Chronic kidney disease, unspecified; E78.5 Hyperlipidemia, unspecified; R97.20 Elevated prostate specific antigen [PSA]
CPT/HCPCS: 36415; 80053; 80061; 83721; 84153; 85025

== ENCOUNTER 2023-06-11 06:28 | Day surgery (SDC) | payer BC ==
[2023-06-11] MEDS ORDERED: LACTATED RINGERS 1,000 ML IV ONE (06:30)
--- NOTE | 2023-06-11 07:08 | ANESTHESIA ---
Pre-Anesthesia VS, & Labs - Diagnosis Hx polyps - Procedure colonoscopy Vital Signs: Temp Pulse Resp BP Pulse Ox O2 Flow Rate 36.1 C L 62 14 142/94 H 96 0 06/11/23 06:43 06/11/23 06:43 06/11/23 06:43 06/11/23 06:43 06/11/23 06:43 06/11/23 06:43 Height: 5 ft 11 in Weight (kg): 96.6 kg Body Mass Index: 29.7 BMI Classification: Overweight Home Medications and Allergies Dorzolamide HCl/Timolol Maleat [Dorzolamide-Timolol Eye Drops] 1 drops RIGHTEYE BID 12/31/12 Felodipine [Felodipine ER] 10 mg PO DAILY 12/31/12 Latanoprost 1 drops RIGHTEYE DAILY 12/31/12 Losartan [Cozaar] 100 mg PO DAILY 12/31/12 Atorvastatin Calcium 40 mg PO QPM 04/24/18 Allergies/Adverse Reactions: Allergies Allergy/AdvReac Type Severity Reaction Status Date / Time No Known Drug Allergies Allergy Verified 08/01/22 16:26 Anes History & Medical History - Anesthetic History Anesthesia Complications: reports: No previous complications Family history of Anesthesia Complications: Denies Family history of Malignant Hyperthermia: Denies - Medical History Cardiovascular: reports: Hypertension, High cholesterol Pulmonary: reports: Sleep apnea, CPAP use Gastrointestinal: reports: Colon polyps Urinary: reports: Benign prostate hypertrophy Musculoskeletal: reports: None Endocrine/Autoimmune: reports: None Skin: reports: None - Surgical History General: reports: Colonoscopy Eyes Ears Nose Throat (EENT): reports: Other Exam General: Alert Dental: WNL Mouth Openin Fingerbreadth Neck Mobility: Normal Mallampati classification: II Thyromental Distance: 4-6 cm Plan Anesthesia Type: Total IV Consent for Procedure(s) Verified and Reviewed: Yes Code Status: Attempt Resuscitation ASA classification: 2-Mild systemic disease Is this case an emergency?: No
[2023-06-11] MEDS ORDERED: SIMETHICONE 40 MG/0.6 ML 15 ML BOTTLE PO ONE (07:47)
[2023-06-11] MEDS ORDERED: LACTATED RINGERS 700 ML IV ONE (08:02)
[2023-06-11 08:22] VITALS: O2SAT 100
[2023-06-11 08:32] VITALS: BP 114/85
--- NOTE | 2023-06-11 13:07 | ANESTHESIA POST OP EVALUATION ---
Anesthesia Post Eval - Post Anesthesia Eval Vitals: Last Vital Signs Temp 35.9 C L 06/11/23 08:15 Pulse 56 L 06/11/23 08:15 Resp 13 06/11/23 08:15 BP 114/85 H 06/11/23 08:25 Pulse Ox 100 06/11/23 08:15 O2 Flow Rate 0 06/11/23 06:43 CV Function Including HR & BP: Stable Pain Control: Satisfactory Nausea & Vomiting: Negative Mental Status: Baseline Respiratory Status: Airway Patent Hydration Status: Satisfactory Anesthesia Complications: None
== END 2023-06-11 06:29 | disposition home or self-care (01) ==
LOC: SDS 06:28
PROVIDERS: ATTEND Surgery
DX: Z86.010 Personal history of colon polyps (principal); K57.30 Diverticulosis of large intestine without perforation or abscess without bleeding; I10 Essential (primary) hypertension; G47.30 Sleep apnea, unspecified; Z79.899 Other long term (current) drug therapy
CPT/HCPCS: 45378; A9270; J7120

== ENCOUNTER 2023-08-02 16:25 | Outpatient (CLI) | payer BC ==
--- NOTE | 2023-08-02 16:41 | Sleep Patient Instructions ---
Sleep Center Visit Summary - Patient Visit Information Reason for Visit: Annual Follow up - Patient Instructions Additional Instructions: You will continue with CPAP therapy with pressure set at 8-9.6 cmH2O. A supply prescription will be updated with your DME. We encourage you to continue to try to lose weight. Please follow up with the sleep care office in 1 year. - Clinic Information Contact: [facility] [address] [place] [address] [email or web address] T: [phone]
[2023-08-02 16:44] VITALS: BP 132/88; O2SAT 96
--- NOTE | 2023-08-02 16:44 | SLEEP CARE CONSULTATION ---
Information from patient questionnaire entered by Bernie Robert. I have reviewed and concur with the information entered by Bernie Robert. This document represents the service I personally performed and the decisions made by , Carolyne iMn ARNP. History of Present Illness Service Date and Time: 08/02/2023 1625 Previous diagnosis: Severe, Obstructive Sleep Apnea-Hypopnea Syndrome AHI: 34.3 Reason for follow up: annual (LAST SEEN 07/2022) Equipment type: CPAP (RESMED Airsense 10 s/u 04/2020) Equipment obtained from: [employer] (getting supplies as needed) Mask style: Nasal pillows (medium cushion) Backup mask available: Yes Last cushion change: 3 weeks Prior sleep studies: No Year and Where: 2019 [facility] Type of Sleep Study: Home sleep study HPI additional information: MALAIKA MARCUM was diagnosed to have severe, AHI 34.3, obstructive sleep apnea-hypopnea syndrome and returned today for CPAP therapy annual follow-up. Sleep Study - Results Type of Sleep Study: Home sleep study Prior sleep studies: No Year and Where: 2019 [facility] CPAP Compliance Data - Data Reviewed with Patient Average duration of nightly device use: 6 HRS 36 MINS Compliance rate %: 99 (07/31/22-07/30/23; 361/365 days used) Current pressure setting (cmH2O): 8-9.6 Average residual AHI: 1.5 Central apnea: 1 Obstructive apnea: 0.3 Hypopnea: 0.2 Average large leak: 0 L/min Subjective Missed days of use due to: reports: travel Patient concerns: denies: aerophagia, mask discomfort, air blowing in eyes, mask leak noise, condensation in mask/hose, nasal congestion, dry mouth, nose, throat, epistaxis Observed to snore while using device: No Current pressure setting perceived as: comfortable On therapy, patient: reports: sleeping better, awakening more refreshed, being more awake and alert during the day, more rested overall. denies: drowsiness while driving Initial [place] Sleepiness Scale score: 9 (in 2019) Current [place] Sleepiness Scale score: 5 (07/2022) Allergies and Home Medications Known drug allergies: No Drug allergies reviewed: Yes Home medication list reviewed: Yes (no changes) Allergy and home medication list: Allergies No Known Drug Allergies Allergy (Verified 07/31/23 14:57) Review of Systems Review of systems same as previous: Yes (NO CHANGE) Physical Exam Vital signs obtained and entered by: BERNIE Goins MA Blood Pressure: 132/88 (LEFT ARM) Cuff size: regular Heart Rate: 75 O2 Saturation: 96 Height: 5 ft 11 in Weight: 220 lb 3.2 oz Weight change since last visit: 10 lb gain Body Mass Index: 30.7 BMI Classification: Obese Impression and Plan 1. Obstructive Sleep Apnea-Hypopnea Syndrome, severe, with good treatment compliance and good apnea control. On CPAP therapy, the patient has better sleep quality and is more rested overall. Patient has significant improvement of their sleep apnea and is satisfied with current CPAP therapy. Patient denies problems with oral dryness, nasal congestion, epistaxis, skin irritation or aerophagia. Patient's apnea severity and rationale for treatment to reduce apnea, improve sleep quality and reduce cardiovascular and cerebrovascular events was reviewed. I also reviewed the benefit of consistent device use of CPAP for hypertension. 2. Obesity, unspecified. Currently patients BMI is 30.7. He has gained weight. Obesity increases the risk of apnea, CPAP pressure requirements and overall health risks especially cardiovascular and diabetes. Thus patient is advised to lose weight. * Continue auto CPAP pressure at 8-9.6 cmH2O * Update supply prescription * Notify me if snoring with mask or feeling that the pressure is too much or too little * Attempt to lose weight * Call this office if any problems using CPAP * Return for follow up in 12 months, or sooner if concerns arise Counseling Topics: Spare mask, Weight loss health impact Prescriptions: Device supplies Follow up with Sleep Care in: 1 year Visit Type: In Office Time Spent with Patient (minutes): 12 Provider Statement: I spent 100% of the Face to Face Visit with the patient with greater than 50% spent counseling the patient and coordination of care.
== END 2023-08-02 16:26 | disposition home or self-care (01) ==
LOC: SC 16:25
PROVIDERS: ATTEND Nurse Practitioner Family
DX: G47.33 Obstructive sleep apnea (adult) (pediatric) (principal); E66.9 Obesity, unspecified; Z68.30 Body mass index [BMI] 30.0-30.9, adult
CPT/HCPCS: 99212

== ENCOUNTER 2023-09-07 07:53 | Observation (INO) | payer BC ==
--- NOTE | 2023-09-07 08:32 | ED Physician Documentation ---
PD HPI HEAD INJURY - Stated complaint Stated Complaint: FELL, HIT HEAD - Chief complaint Chief Complaint: Trauma Hd/Nk - History obtained from History obtained from: Patient, Family - Additional information Additional information: Patient is a 63-year-old male presenting for evaluation after a fall from a ladder yesterday afternoon between 3 and 4 PM. Patient was home alone and up on his roof. He recalls having some anxiety on going up the ladder and then remembers about to put his foot on the ladder to go down. The next thing he remembers is Sitting in a patio chair near the ladder in his backyard. His came home a few hours later. He has been acting his usual self since then. Denies any dizziness, lightheadedness. Does have an abrasion to his head but denies a headache. This morning he reported some nausea and also Some pain in his left hand and wrist. He does not take a blood thinner. He is not diabetic. Denies a history of fainting spells or seizures.After the episode he then drove himself back to work as he initially was confused as to why he was not at work in the afternoon. He then remembered that he had left early. He denies leaving work early yesterday because he was not feeling well. states that he had a fall from the ladder 3 weeks ago when he did not remember to lock it. Review of Systems Constitutional: denies: Fever Cardiac: denies: Chest pain / pressure Respiratory: denies: Dyspnea GI: reports: Nausea. denies: Abdominal Pain Musculoskeletal: reports: Extremity pain Neurologic: reports: Syncope, Head injury PD PAST MEDICAL HISTORY - Past Medical History Past Medical History: Yes Cardiovascular: Hypertension, High cholesterol Respiratory: Sleep apnea, CPAP use Endocrine/Autoimmune: None GI: Colon polyps : Benign prostate hypertrophy HEENT: Chronic vision loss, Glaucoma Psych: None Musculoskeletal: None Derm: None - Past Surgical History Past Surgical History: Yes General: Colonoscopy HEENT: Other - Present Medications Home Medications: Ambulatory Orders Medication Instructions Recorded Confirmed Dorzolamide HCl/Timolol Maleat 1 drops RIGHTEYE BID 12/31/12 09/07/23 [Dorzolamide-Timolol Eye Drops] Felodipine [Felodipine ER] 10 mg PO DAILY 12/31/12 09/07/23 Latanoprost 1 drops RIGHTEYE DAILY 12/31/12 09/07/23 Losartan [Cozaar] 100 mg PO DAILY 12/31/12 09/07/23 Atorvastatin Calcium 40 mg PO QPM 04/24/18 09/07/23 - Allergies Allergies/Adverse Reactions: Allergies Allergy/AdvReac Type Severity Reaction Status Date / Time No Known Drug Allergies Allergy Verified 09/07/23 08:05 - Social History Does the pt smoke?: No Smoking Status: Never smoker Does the pt drink ETOH?: No Does the pt have substance abuse?: No - Immunizations Immunizations are current?: No Immunizations: Other immun not current PD ED PE NORMAL - General General: Alert and oriented X 3, No acute distress, Well developed/nourished - HEENT HEENT: EOMI, Moist mucous membranes, Pharynx benign, Other (Right eye with glaucoma, clouded cornea; Bruising to right parietal scalp) - Neck Neck: Supple, no meningeal sign, No bony TTP - Cardiac Cardiac: Strong equal pulses, Other (Irregularly irregular, slightly tachycardic in the low 100s) - Respiratory Respiratory: No respiratory distress, Clear bilaterally - Abdomen Abdomen: Normal bowel sounds, Soft, Non tender, Non distended - Derm Derm: Warm and dry - Extremities Extremities: Other (Swelling and bruising to left wrist and left hand with pain on range of motion, no snuffbox tenderness) - Neuro Neuro: Alert and oriented X 3, salvage determiner 2-12 intact, No motor deficit, No sensory deficit, Normal speech Results - Vitals Vitals: Vital Signs - 24 hr 09/07/23 09/07/23 08:01 10:24 Temperature 36.7 C Heart Rate 105 H 87 Respiratory 18 12 Rate Blood Pressure 146/88 H 143/107 H O2 Saturation 97 95 Oxygen O2 Source Room air - EKG (time done) 0834 EKG releavant findings:: EKG personally interpreted by author of this note. Relevant findings are: Rate 115 atrial fibrillation, no STEMI - Labs Labs: Laboratory Tests 09/07/23 09/07/23 09/07/23 08:31 08:31 08:31 WBC 8.0 RBC 4.55 L Hgb 14.0 Hct 42.4 MCV 93.2 MCH 30.8 MCHC 33.0 RDW 12.9 Plt Count 207 MPV 9.2 Neut # (Auto) 5.7 Lymph # (Auto) 1.5 Glynn # (Auto) 0.7 Eos # (Auto) 0.1 Baso # (Auto) 0.1 Absolute Nucleated RBC 0.00 Nucleated RBC % 0.0 Sodium 140 Potassium 3.9 Chloride 108 Carbon Dioxide 25 Anion Gap 7.0 BUN 15 Creatinine 1.2 Estimated GFR (MDRD) 62 L Glucose 100 Calcium 9.5 Total Bilirubin 1.6 H AST 16 ALT 12 Alkaline Phosphatase 99 Troponin I High Sens 12.4 Total Protein 6.9 Albumin 4.4 Globulin 2.5 Albumin/Globulin Ratio 1.8 Lipase 31 TSH 0.98 PD Medical Decision Making - ED course Complexity details: reviewed results, re-evaluated patient, d/w patient ED course: Patient is a 63-year-old male who reports a fall from a ladder yesterday afternoon. Patient is unsure of the events prior to the fall and does not recall events immediately right after the fall. Unclear as to what could have caused him to fall or whether this was a syncopal episode. He does have a head injury. Does not take a blood thinner. Also reports pain to the left hand. An EKG was obtained given unclear history as well as tachycardia and patient is found to be in new onset atrial fibrillation. CBC, chemistry, troponin and TSH were obtained and reviewed and without significant findings. CT head, chest x- ray, x-rays of the left hand and wrist were also reviewed and without acute findings. Patient was given IV fluids, Zofran for nausea, p.o. oxycodone for hand pain as well as 1 dose of IV metoprolol for heart rates above 110. Given co ncerns for syncope with new onset atrial fibrillation patient's [place] syncope score places him out of the low risk category.Discussed with admitting hospitalist who will admit for further observation. 0845 - EKG completed and patient noted to be in atrial fibrillation. Discussion with patient and his this is new for him. He does not drink or use any substances. Has not felt palpitations. Denies chest pain or feeling short of air. Patient states his mother did have A-fib. Departure - Departure Disposition: ED Place in Observation Clinical Impression: New onset atrial fibrillation, Syncope, Head injury, Left wrist sprain, Contusion of left hand Condition: Stable Discharge Date/Time: 09/07/23 12:44
[2023-09-07 08:36] LABS: BASOPHILS # (AUTO) 0.1 10^3/uL (0.0-0.1); BASOPHILS % (AUTO) 0.6 %; EOSINOPHILS # (AUTO) 0.1 10^3/uL (0.0-0.7); HCT - HEMATOCRIT 42.4 % (42.0-52.0); LYMPHOCYTES # (AUTO) 1.5 10^3/uL (1.5-3.5); LYMPHOCYTES % (AUTO) 18.3 %; MEAN CORPUSCULAR HEMOGLOBIN 30.8 pg (27.0-31.0); MEAN CORPUSCULAR VOLUME 93.2 fL (80.0-94.0); MEAN PLATELET VOLUME 9.2 fL (7.4-11.4); MONOCYTES # (AUTO) 0.7 10^3/uL (0.0-1.0); MONOCYTES % (AUTO) 8.8 %; NEUTROPHILS # (AUTO) 5.7 10^3/uL (1.5-6.6); PLT - PLATELET COUNT 207 10^3/uL (130-450); RED BLOOD COUNT 4.55 10^6/uL (4.70-6.10); RED CELL DISTRIBUTION WIDTH 12.9 % (12.0-15.0)
[2023-09-07 08:52] LABS: ALBUMIN 4.4 g/dL (3.2-5.5); ALBUMIN/GLOBULIN RATIO 1.8 (1.0-2.2); BILIRUBIN,TOTAL 1.6 mg/dL (0.2-1.0); CALCIUM 9.5 mg/dL (8.5-10.3); CREATININE 1.2 mg/dL (0.6-1.3); POTASSIUM 3.9 mmol/L (3.5-4.5); TOTAL PROTEIN 6.9 g/dL (6.4-8.9)
[2023-09-07 08:58] LABS: TROPONIN I HIGH SENSITIVITY 12.4 ng/L (2.3-19.7)
[2023-09-07] MEDS: SODIUM CHLORIDE 0.9% 1,000 ML IV STA (09:16)
[2023-09-07] MEDS: ACETAMINOPHEN 325 MG TABLET PO STA (09:17)
--- NOTE | 2023-09-07 09:30 | CT Report ---
PROCEDURE: Head WO INDICATIONS: syncope/head injury/fall from ladder TECHNIQUE: Noncontrast 4.5 mm thick angled axial sections acquired from the foramen magnum to the vertex. For r adiation dose reduction, the following was used: automated exposure control, adjustment of mA and/or kV according to patient size. COMPARISON: None. FINDINGS: Image quality: There is streak artifact seen through the skull base. CSF spaces: Basal cisterns are patent. No extra-axial fluid collections. Ventricles are normal in size and shape. Brain: No midline shift. No intracranial masses or hemorrhage. Casey-white matter interface is norm al. Age-appropriate brain parenchymal volume loss and chronic small vessel ischemic change can be se en. Skull and face: Calvarium and visualized facial bones are intact, without suspicious lesions. Sinuses: Visualized sinuses and mastoids are clear. IMPRESSION: No intracranial hemorrhage is seen. No acute intracranial pathology. Reviewed by: Chai Morley MD on 09/07/2023 8:29 AM KI Approved by: Chai Morley MD on 09/07/2023 8:29 AM [facility] Station ID: [id number]
--- NOTE | 2023-09-07 09:31 | XRAY Report ---
PROCEDURE: Chest 1V INDICATIONS: syncope TECHNIQUE: One view of the chest was acquired. COMPARISON: Correlation is made with the accompanying imaging. FINDINGS: Surgical changes and devices: None. Lungs and pleura: No pleural effusions or pneumothorax. Lungs are clear. Mediastinum: The aorta is prominent and tortuous. The cardiac contours are within normal limits. Bones and chest wall: No displaced rib fracture is seen. No suspicious bony lesions. Age-appropriate degenerative changes are seen. Overlying soft tissues appear unremarkable. IMPRESSION: No acute cardiopulmonary process. Reviewed by: Chai Morley MD on 09/07/2023 8:30 AM KI Approved by: Chai Morley MD on 09/07/2023 8:30 AM [facility]ERE[facility] Station ID: [id number]
--- NOTE | 2023-09-07 09:33 | XRAY Report ---
PROCEDURE: Wrist 3+V LT INDICATIONS: fall/pain TECHNIQUE: 3 views of the wrist were acquired. COMPARISON: Correlation is made with the accompanying imaging. FINDINGS: Bones: No joelle acute fractures or dislocations. Chronic deformity is seen of the distal radius. No suspicious bony lesions. Soft tissues: No suspicious soft tissue calcifications or masses. IMPRESSION: Chronic deformity of the distal radius, without an acute fracture line seen on these plain films. Please correlate with focal tenderness. If there is point tenderness (or other clinical concern for a fracture not seen on these plain films) then please consider a dedicated CT study or a short term fo llow up plain film series for further evaluation. Reviewed by: Chai Morley MD on 09/07/2023 8:31 AM KI Approved by: Chai Morley MD on 09/07/2023 8:31 AM KI Station ID: [id number]
--- NOTE | 2023-09-07 09:33 | XRAY Report ---
PROCEDURE: Hand 3+V LT INDICATIONS: thumb pain TECHNIQUE: 3 views of the hand(s) acquired. COMPARISON: None. FINDINGS: Bones: In this patient with this given history, scrutiny is given to the thumb. No fractures or disl ocations can be seen of the thumb. No fractures or dislocations are seen elsewhere. No suspicious bony lesions. Soft tissues: No suspicious soft tissue calcifications or masses. IMPRESSION: No acute bony abnormality. No focal abnormality is seen of the thumb. Reviewed by: Chai Morley MD on 09/07/2023 8:32 AM KI Approved by: Chai Morley MD on 09/07/2023 8:32 AM KI Station ID: [id number]
[2023-09-07] MEDS: ONDANSETRON 4 MG/2 ML VIAL IVP STA (09:41)
[2023-09-07] MEDS: METOPROLOL 5 MG/5 ML VIAL IVP STA (09:41)
[2023-09-07] MEDS: oxyCODONE 5 MG TABLET PO STA (09:59)
[2023-09-07] MEDS ORDERED: ONDANSETRON 4 MG/2 ML VIAL IVP PRN (11:54)
[2023-09-07] MEDS ORDERED: SODIUM CHLORIDE FLUSH 0.9% 10 ML SYRINGE IVP PRN (11:54)
--- NOTE | 2023-09-07 12:11 | HISTORY & PHYSICAL EXAMINATION ---
Chief Complaint - Chief Complaint Chief Complaint: Syncope, hand pain History of Present Illness - Admitted From Admitted From:: Home - History Obtained From History obtained from: the pt and - History of Present Illness HPI Comment/Other: This is a 63 yo M with history of HTN, HLD, glaucoma and PHIL on CPAP came with syncope and hand pain. The pt reports that he fell off the ladder to the cement ground yesterday. The height was about 8 ft. He had a fall the other day from the ladder he was nervous about going up. He didn't feel any palpitation, chest pain, SOB, N/V, lightheadedness or dizziness. at some point he had LOC and he doesn't remember falling off the ladder. He woke up on the chair somehow. Since then he has been having left hand pain so he came to ED. The pt reports that his PO intake has been good. He had nausea this morning but denies any vomiting or diarrhea. ED course: Vital signs showed HR of 105 and BP 146/88. Work up revealed T hayder of 1.6. CXR, hand x-ray and CT head w/o contrast were unremarkable. ECG was reviewed personally and it showed A fib with RVR. The pt received tylenol 650mg PO, NS 1 liter, IV metoprolol 5mg, oxycodone 5mg PO and zofran 4mg IV. History - Past Medical History Cardiovascular: reports: Hypertension, High cholesterol Respiratory: reports: Sleep apnea, CPAP use Endocrine/Autoimmune: reports: None GI: reports: Colon polyps : reports: Benign prostate hypertrophy HEENT: reports: Chronic vision loss, Glaucoma Psych: reports: None Musculoskeletal: reports: None Derm: reports: None MRSA Hx?: No - Past Surgical History General: reports: Colonoscopy HEENT: reports: Other - Family & Social History Family History: Mother: Cancer (Breast), CVA/TIA Family History Comment/Other: A fib: Mom Living arrangement: At home Living Situation: With spouse/s.o. - Substance History Use: Uses substance without health or social issues: NONE - POLST Patient has POLST: No POLST Status: Full Code Meds/Allgy - Home Medications Home Medications: Ambulatory Orders Medication Instructions Recorded Confirmed Dorzolamide HCl/Timolol Maleat 1 drops RIGHTEYE BID 12/31/12 08/02/23 [Dorzolamide-Timolol Eye Drops] Felodipine [Felodipine ER] 10 mg PO DAILY 12/31/12 08/02/23 Latanoprost 1 drops RIGHTEYE DAILY 12/31/12 08/02/23 Losartan [Cozaar] 100 mg PO DAILY 12/31/12 08/02/23 Atorvastatin Calcium 40 mg PO QPM 04/24/18 08/02/23 - Allergies Allergies/Adverse Reactions: Allergies Allergy/AdvReac Type Severity Reaction Status Date / Time No Known Drug Allergies Allergy Verified 09/07/23 08:05 Review of Systems - All Other Systems All Other Systems: reports: Reviewed and negative Prior Level of Functionality: Independent Exam - Vital Signs Reviewed Vital Signs: Yes Vital Signs: Vital Signs x48h Temp Pulse Resp BP Pulse Ox 09/07/23 10:24 87 12 143/107 H 95 09/07/23 08:01 36.7 C 105 H 18 146/88 H 97 - Physical Exam General Appearance: positive: No acute distress Eyes Bilateral: positive: Normal inspection, EOMI ENT: positive: No signs of dehydration Neck: positive: Nml inspection, No JVD Respiratory: positive: Chest non-tender, No respiratory distress Cardiovascular: positive: Irregularly irregular Abdomen: positive: Non-tender, Nml bowel sounds, No distention Skin: positive: Color nml, No rash, Warm, Dry Extremities: positive: Nml appearance, No pedal edema Neurologic/Psychiatric: positive: Oriented x3, Mood/affect nml Conclusion/Plan - Problem List (1) Atrial fibrillation with RVR Conclusion/Plan: New onset. Will put him on metoprolol PO 25mg BID. I discussed with the pt regarding anticoagulation and he agreed with anticoagulation. [id number] score is 1 and HAS-BLED score is 0. Will start him on eliquis. He will need to have echo as an outpt. He will make an appointment on Saturday with PCP. (2) Syncope and collapse Conclusion/Plan: I think he had syncope from A fib with RVR. Will keep him on Tele for now. (3) Hand pain, left Conclusion/Plan: Paincontrol with tylenol. May give oxycodone. (4) Hyperbilirubinemia Conclusion/Plan: Likely temporary. Will check CMP in am. - Lab Results Fish Bones: 09/07/23 08:31 09/07/23 08:31 - Diagnostic Imaging Results Diagnostic Imaging Results: positive: Final report reviewed - EKG Results EKG Interpreted Independently: Yes EKG Comparison: Old EKG unavailable EKG Findings: A fib with RVR Core Measures - Anticipated LOS I expect patient to be DC'd or transferred within 96 hours.: Yes - DVT/VTE - Prophylaxis VTE/DVT Prophylaxis med ordered at admit?: Yes
[2023-09-07] MEDS: APIXABAN 5 MG TABLET PO SCH (12:16)
[2023-09-07] MEDS: METOPROLOL TARTRATE 25 MG TABLET PO SCH (12:16)
--- NOTE | 2023-09-07 13:39 | PHARMACY PROGRESS NOTE ---
- Best Possible Medication History Admit Date and Time: 09/07/23 1154 Processed by: Pharmacy Medications reviewed in ED?: Yes Medication History completed: Yes Patient Interview: Completed Secondary Source(s): Pharmacy records, Insurance records As the person ultimately responsible for medication therapy, providers are able to order a medication from an existing home medication list in [facility] via the "Reconcile Routine" prior to Confirmation of that medication by support manager. Such practice is discouraged except when the physician, in their clinical judgment, deems that a medical need exists for a medication without regard to previous use.
[2023-09-07] MEDS: ACETAMINOPHEN 325 MG TABLET PO PRN (16:14)
[2023-09-07] MEDS: SODIUM CHLORIDE FLUSH 0.9% 10 ML SYRINGE IVP SCH (16:15)
[2023-09-08 05:58] LABS: ALBUMIN 3.7 g/dL (3.2-5.5); ALBUMIN/GLOBULIN RATIO 2.1 (1.0-2.2); BILIRUBIN,TOTAL 1.5 mg/dL (0.2-1.0); CALCIUM 9.1 mg/dL (8.5-10.3); CREATININE 1.3 mg/dL (0.6-1.3); MAGNESIUM 1.7 mg/dL (1.7-2.3); POTASSIUM 3.9 mmol/L (3.5-4.5); TOTAL PROTEIN 5.5 g/dL (6.4-8.9)
--- NOTE | 2023-09-08 07:47 | Discharge Plan ---
Discharge Plan Problem Reviewed?: Yes Disposition: Home, Self Care Condition: Stable Diet: Cardiac Activity Restrictions: Activity as Tolerated Shower Restrictions: No Driving Restrictions: Yes (Needs to be cleared by PCP) Weight Bearing: Full Weight Health Concerns: New diagnosis of A fib. It looks like this is paroxysmal A fib. Plan of Treatment: Take metoprolol 25mg BID. Hold if HR is <55. Take eliquis 5mg BID to prevent stroke. Will need to have echocardiogram as an outpt. No Smoking: If you smoke, Please STOP! Call for help. Follow-up with: Kristen Patton PA-C [Primary Care Provider] - 1-2 Days
--- NOTE | 2023-09-08 07:52 | DISCHARGE SUMMARY ---
"Discharge Summary Admit Date: 09/07/23 Discharge Date: 09/08/23 Discharging Provider: Saurabh Benoit Primary Care Provider: Davida Patton Code Status: Attempt Resuscitation Condition at Discharge: Good Discharge Disposition: 01 Home, Self Care - DIAGNOSES Admission Diagnoses: New onset A fib with RVR, syncope Discharge Diagnoses with Status of Each Condition: Paroxysmal A fib: New onset. Back to NSR. Syncope: Likely from A fib with RVR. stable. - HPI History of Present Illness: Per my H&P, This is a 63 yo M with history of HTN, HLD, glaucoma and PHIL on CPAP came with syncope and hand pain. The pt reports that he fell off the ladder to the cement ground yesterday. The height was about 8 ft. He had a fall the other day from the ladder he was nervous about going up. He didn't feel any palpitation, chest pain, SOB, N/V, lightheadedness or dizziness. at some point he had LOC and he doesn't remember falling off the ladder. He woke up on the chair somehow. Since then he has been having left hand pain so he came to ED. The pt reports that his PO intake has been good. He had nausea this morning but denies any vomiting or diarrhea. ED course: Vital signs showed HR of 105 and BP 146/88. Work up revealed T hayder of 1.6. CXR, hand x-ray and CT head w/o contrast were unremarkable. ECG was reviewed personally and it showed A fib with RVR. The pt received tylenol 650mg PO, NS 1 liter, IV metoprolol 5mg, oxycodone 5mg PO and zofran 4mg IV. - CONSULTS | PROCEDURES Consultations: None - HOSPITAL COURSE Hospital Course: Upon admisison he was started on eliquis and metoprolol. his heart rhythm was monitored on tele. The pt converted back to NSR overnight so it looks like he has paroxysmal A fib. The pt will continue with metoprolol and eliquis upon discharge. His [id number] score is 1 and HAS BLED score is 0. The pt will need to have echo as an outpt and his PCP needs to order. - ALLERGIES Allergies/Adverse Reactions: Allergies Allergy/AdvReac Type Severity Reaction Status Date / Time No Known Drug Allergies Allergy Verified 09/07/23 08:05 - MEDICATIONS Home Medications: Ambulatory Orders Medication Instructions Recorded Confirmed Dorzolamide HCl/Timolol Maleat 1 drops RIGHTEYE BID 12/31/12 09/07/23 [Dorzolamide-Timolol Eye Drops] Felodipine [Felodipine ER] 10 mg PO DAILY 12/31/12 09/07/23 Latanoprost 1 drops RIGHTEYE DAILY 12/31/12 09/07/23 Losartan [Cozaar] 100 mg PO DAILY 12/31/12 09/07/23 Atorvastatin Calcium 40 mg PO QPM 04/24/18 09/07/23 Apixaban [Eliquis] 5 mg PO BID #60 tab 09/08/23 Metoprolol Tartrate [Lopressor] 25 mg PO BID #60 tab 09/08/23 - PHYSICAL EXAM AT DISCHARGE General Appearance: positive: No acute distress Eyes Bilateral: positive: Normal inspection, EOMI Neck: positive: Nml inspection, No JVD Respiratory: positive: Chest non-tender, No respiratory distress, Breath sounds nml Cardiovascular: positive: Regular rate & rhythm Abdomen: positive: Non-tender, Nml bowel sounds, No distention - LABS Result Diagrams: 09/07/23 08:31 09/08/23 05:33 - DIAGNOSTIC IMAGING Diagnostic Imaging Results: Final report reviewed - FOLLOW UP Follow Up: PCP in few days - TIME SPENT Time Spent in Discharge (Minutes): 40"
[2023-09-08 08:04] VITALS: O2SAT 95
--- NOTE | 2023-09-08 08:07 | Discharge Plan ---
Discharge Plan Problem Reviewed?: Yes Disposition: Home, Self Care Condition: Good Prescriptions: Apixaban [Eliquis] 5 mg PO BID #60 tab Metoprolol Tartrate [Lopressor] 25 mg PO BID #60 tab Diet: Cardiac Activity Restrictions: Activity as Tolerated Shower Restrictions: No Driving Restrictions: Yes (Needs to be cleared by PCP) Weight Bearing: Full Weight Health Concerns: New diagnosis of A fib. It looks like this is paroxysmal A fib. Plan of Treatment: Take metoprolol 25mg BID. Hold if HR is <55. Take eliquis 5mg BID to prevent stroke. Will need to have echocardiogram as an outpt. No Smoking: If you smoke, Please STOP! Call for help. Follow-up with: Kristen Patton PA-C [Primary Care Provider] - 1-2 Days
[2023-09-08] MEDS: LOSARTAN 50 MG TABLET PO SCH (08:26)
[2023-09-08] MEDS: amLODIPine 5 MG TABLET PO SCH (08:29)
[2023-09-08] MEDS: LATANOPROST 0.005% OPHTH DROPS RIGHTEYE SCH (08:30)
[2023-09-08] MEDS: DORZOLAMIDE/TIMOLOL OPHTH DROPS RIGHTEYE SCH (08:30)
[2023-09-08 08:35] VITALS: BP 147/65
--- NOTE | 2023-09-08 09:22 | Discharge Plan ---
Discharge Plan Problem Reviewed?: Yes Disposition: Home, Self Care Condition: Good Prescriptions: Apixaban [Eliquis] 5 mg PO BID #60 tab Metoprolol Tartrate [Lopressor] 25 mg PO BID #60 tab Activity Restrictions: Activity as Tolerated Shower Restrictions: No Driving Restrictions: Yes (Needs to be cleared by PCP) Weight Bearing: Full Weight Health Concerns: New diagnosis of A fib. It looks like this is paroxysmal A fib. Plan of Treatment: Take metoprolol 25mg BID. Hold if HR is <55. Take eliquis 5mg BID to prevent stroke. Will need to have echocardiogram as an outpt. No Smoking: If you smoke, Please STOP! Call for help. Follow-up with: Kristen Patton PA-C [Primary Care Provider] - 1-2 Days
[2023-09-08] MEDS ORDERED: ATORVASTATIN 40 MG TABLET PO SCH (21:00)
== END 2023-09-08 09:25 | disposition home or self-care (01) ==
LOC: ED 07:53 → MS2 11:54
PROVIDERS: ADMIT Internal Medicine; ATTEND Internal Medicine
DX: I48.0 Paroxysmal atrial fibrillation (principal); R55 Syncope and collapse; G47.33 Obstructive sleep apnea (adult) (pediatric); S09.90XA Unspecified injury of head, initial encounter; S60.222A Contusion of left hand, initial encounter; S63.502A Unspecified sprain of left wrist, initial encounter; W11.XXXA Fall on and from ladder, initial encounter; I10 Essential (primary) hypertension; E78.5 Hyperlipidemia, unspecified; H40.9 Unspecified glaucoma; H54.7 Unspecified visual loss; Z79.899 Other long term (current) drug therapy; Z80.3 Family history of malignant neoplasm of breast; Z82.3 Family history of stroke; Z82.49 Family history of ischemic heart disease and other diseases of the circulatory system
CPT/HCPCS: 36415; 70450; 71045; 73110; 73130; 80053; 83690; 83735; 84443; 84484; 85025; 93005; 96374; 99284; 99285; A9270; G0378

== ENCOUNTER 2023-09-18 10:37 | Outpatient (CLI) | payer BC | END 2023-09-18 10:38 | disposition home or self-care (01) | LOC: DI 10:37 | PROVIDERS: ATTEND Physician Assistant Medical | DX: I48.0 Paroxysmal atrial fibrillation (principal); R55 Syncope and collapse; I77.810 Thoracic aortic ectasia; I34.1 Nonrheumatic mitral (valve) prolapse | CPT/HCPCS: 93307 ==

== ENCOUNTER 2023-12-16 08:00 | Outpatient (CLI) | payer BC ==
[2023-12-16 17:56] LABS: BILIRUBIN,URINE NEGATIVE (NEGATIVE); CLARITY,URINE HAZY (CLEAR); GLUCOSE, URINE (UA) NEGATIVE (NEGATIVE); KETONES,URINE (UA) NEGATIVE (NEGATIVE); LEUKOCYTE ESTERASE, URINE NEGATIVE (NEGATIVE); NITRITE,URINE NEGATIVE (NEGATIVE); OCCULT BLOOD,URINE LARGE (NEGATIVE); PH,URINE 5.5 PH (5.0-7.5); PROTEIN,URINE NEGATIVE (NEGATIVE); UROBILINOGEN,URINE 0.2 (NORMAL) E.U./dL (NORMAL)
[2023-12-16 18:06] LABS: BACTERIA,URINE None Seen /HPF (None Seen); RBC,URINE TNTC /HPF (0-5); SQUAMOUS EPITHELIAL CELL,UR NONE SEEN (<= Few); WBC,URINE 0-3 /HPF (0-3)
== END 2023-12-16 23:59 | disposition home or self-care (01) ==
LOC: LAB.N 08:00
PROVIDERS: ATTEND Physician Assistant Medical
DX: R31.0 Gross hematuria (principal)
CPT/HCPCS: 81001; 87086

== ENCOUNTER 2024-01-31 16:17 | Outpatient (CLI) | payer BC ==
--- NOTE | 2024-02-02 22:06 | Ultrasound Report ---
PROCEDURE: Renal (Retroperitoneal) INDICATIONS: GROSS HEMATURIA TECHNIQUE: Real-time scanning was performed of the retroperitoneal organs, with image documentation. COMPARISON: None. FINDINGS: Kidneys: Kidneys are normal in size. Right kidney measures 11.5 cm long; left kidney measures 11.8 cm long. Right renal cortical thickness is 1.9 cm; left renal cortical thickness is 1.5 cm. No joyce d masses or hydronephrosis. 7 mm nonobstructing stone is seen in midpole right kidney. Bladder: Pre-void bladder volume is 105 mL. Post-void residual is 46.8 mL. Pre-void images demonst rate no intraluminal masses or stones. Small bladder wall diverticulum is seen. On pre-void images, bilateral ureteral jets are noted with color Doppler interrogation. (Of note, ureteral jets may not be detectable in up to 25% of cases due to insufficient differences in specific gravity between urete ral and bladder urine). Miscellaneous: No free abdominal fluid. Enlarged prostate gland is seen with mass effect on floor o f urinary bladder measures 4.8 x 4.4 x 5.7 cm in size. IMPRESSION: 1. 7 mm nonobstructing stone in mid pole right kidney. No hydronephrosis or solid appearing renal les ion. 2. Small bladder wall diverticulum. No bladder wall thickening or mass. Moderate amount of postvoid r esidual. 3. Enlarged prostate gland with mild mass effect on floor of urinary bladder. Reviewed by: Ag Smith MD on 02/02/2024 10:05 PM PDT Approved by: Ag Smith MD on 02/02/2024 10:05 PM PDT Station ID: [id number]
== END 2024-01-31 16:18 | disposition home or self-care (01) ==
LOC: DI 16:17
PROVIDERS: ATTEND Physician Assistant Medical
DX: R31.0 Gross hematuria (principal); N20.0 Calculus of kidney; N32.3 Diverticulum of bladder; N40.0 Benign prostatic hyperplasia without lower urinary tract symptoms